=== PATIENT | male | born 1950 | race Caucasian/White ===

== ENCOUNTER 2023-03-06 12:31 | Inpatient (IN) | payer OTHER ==
--- NOTE | 2023-03-06 13:58 | RAD REPORT ---
EXAM DESCRIPTION: CT - Head Brain Wo Cont - 03/06/2023 1:50 pm CLINICAL HISTORY: Alteration of awareness/confusion COMPARISON: None TECHNIQUE: Computed axial tomography of the head was obtained. IV contrast was not requested. All CT scans are performed using dose optimization technique as appropriate and may include automated exposure control or mA/KV adjustment according to patient size. FINDINGS: An intracranial bleed is not seen The ventricles are normal in caliber No extra-axial fluid collection is noted. Mild cerebral atrophy Fluid within the sinuses/ mastoids is not seen. IMPRESSION: No acute intracranial abnormality is seen If patient's symptoms persist MRI of the brain would be recommended
--- NOTE | 2023-03-06 14:17 | RAD REPORT ---
EXAM DESCRIPTION: Ulysses Single View03/06/2023 2:00 pm CLINICAL HISTORY: Weakness, ataxia, hepatitis-C COMPARISON: none FINDINGS: The lungs appear clear of acute infiltrate. The heart is normal size IMPRESSION: No acute abnormalities displayed
--- NOTE | 2023-03-06 14:18 | RAD REPORT ---
EXAM DESCRIPTION: RAD - Hip Left 2 View - 03/06/2023 2:00 pm CLINICAL HISTORY: Left hip pain FINDINGS: A zipper overlies medial left pubic bone obscuring detail. No fracture or dislocation is seen. Mild osteoarthritis involves left hip. The bones appear osteoporo tic
[2023-03-06 15:03] LABS: Absolute Lymphocytes (CBC) 0.4 K/uL (0.7-4.9); Hematocrit 42.3 % (39.6-49.0); Lymphocytes % 4.9 % (15.3-44.8); MCV 92.5 fL (80-100); MPV 6.9 fL (7.6-11.3); Platelets 271 thou/uL (152-406); RBC Red Blood Cell Count 4.58 M/uL (4.33-5.43)
[2023-03-06 15:04] LABS: Protime INR 1.15
[2023-03-06 15:09] LABS: Specific Gravity 1.013 (1.005-1.030); Urine Bacteria None Seen /HPF (<20); Urine Bilirubin NEGATIVE (Negative); Urine Blood 1+ (Negative); Urine Clarity Clear (Clear); Urine Color Yellow (Yellow); Urine Glucose NEGATIVE (Negative); Urine Mucus Slight /HPF (None Seen); Urine Protein TRACE (Negative); Urine Urobilinogen 2+ (Normal)
[2023-03-06 15:19] LABS: Albumin 2.8 g/dL (3.4-5.0); Bilirubin Direct 0.2 mg/dL (0-0.2); Bilirubin Indirect, Calculated 0.3 mg/dL (0.2-0.8); Bilirubin Total 0.5 mg/dL (0.2-1.0); Potassium 4.9 mEq/L (3.5-5.1); Protein, Total 7.2 g/dL (6.4-8.2); Troponin High Sensitivity 6.9 pg/mL (<58.9)
--- NOTE | 2023-03-06 18:47 | EDPHYS ---
Physician Documentation [facility] Name: Emre Stack Age: 72 yrs Sex: Male : 1950 Arrival Date: 03/06/2023 Time: 12:31 Bed 18 Private MD: ED Physician Kehinde Salas HPI: 03/06 20:47 This 72 yrs old Male presents to ER via EMS with complaints of General Weakness. kdr 20:47 Patient become more more weak over the last few weeks. Has had some falls as well. kdr Patient is also been incontinent of stool and urine for the last 24 hours. Patient appears very cachectic and has had very poor nutrition over the last few weeks. According to the family this present, the patient was improving after the first encountered him about 3 weeks ago. He had a period of time when he was able to ambulate and maintain his strength. Subsequently he is slowly declined to where he is today. Family states are simply unable to take care of him at this time and that he continues to have incontinence of bowel and bladder. Patient himself has 0 complaint aside from being weak. Onset: The symptoms/episode began/occurred gradually, 3 week(s) ago. Severity of symptoms: At their worst the symptoms were mild moderate just prior to arrival, in the emergency department the symptoms are unchanged. The patient has not experienced similar symptoms in the past. The patient has not recently seen a physician. Historical: - Allergies: 12:39 No Known Allergies; eh3 - PMHx: 12:39 Hepatitis C; Psych diagnosis; eh3 - Immunization history:: Adult Immunizations up to date. - Social history:: Smoking status: Patient reports the use of cigarette tobacco products, smokes two packs cigarettes per day. has not smoked in last 5 days, Patient/guardian denies using alcohol. ROS: 20:47 Constitutional: Negative for fever, chills, and weight loss, Eyes: Negative for injury, kdr pain, redness, and discharge, ENT: Negative for injury, pain, and discharge, Neck: Negative for injury, pain, and swelling, Cardiovascular: Negative for chest pain, palpitations, and edema, Respiratory: Negative for shortness of breath, cough, wheezing, and pleuritic chest pain, Abdomen/GI: Negative for abdominal pain, nausea, vomiting, diarrhea, and constipation, Back: Negative for injury and pain, MS/Extremity: Negative for injury and deformity, Skin: Negative for injury, rash, and discoloration, Neuro: Negative for headache, weakness, numbness, tingling, and seizure activity. Psych: Negative for depression, anxiety, suicide ideation, homicidal ideation, and hallucinations, Allergy/Immunology: Negative for hives, rash, and allergies, Endocrine: Negative for neck swelling, polydipsia, polyuria, polyphagia, and marked weight changes, Hematologic/Lymphatic: Negative for swollen nodes, abnormal bleeding, and unusual bruising. 20:47 Abdomen/GI: Positive for bowel incontinence, Negative for abdominal pain, nausea and vomiting, nausea, vomiting, and diarrhea, nausea, vomiting. 20:47 : Positive for Incontinence of bladder and urine. Exam: 20:47 Constitutional: This is a well developed, who is awake, alert, and in no acute kdr distress. Patient appears to be very cachectic and poorly nourished Head/Face: Normocephalic, atraumatic. Eyes: Pupils equal round and reactive to light, extra-ocular motions intact. Lids and lashes normal. Conjunctiva and sclera are non-icteric and not injected. Cornea within normal limits. Periorbital areas with no swelling, redness, or edema. Neck: Trachea midline, no thyromegaly or masses palpated, and no cervical lymphadenopathy. Supple, full range of motion without nuchal rigidity, or vertebral point tenderness. No Meningismus. Chest/axilla: Normal chest wall appearance and motion. Nontender with no deformity. No lesions are appreciated. Cardiovascular: Regular rate and rhythm with a normal S1 and S2. No gallops, murmurs, or rubs. Normal PMI, no JVD. No pulse deficits. Respiratory: Lungs have equal breath sounds bilaterally, clear to auscultation and percussion. No rales, rhonchi or wheezes noted. No increased work of breathing, no retractions or nasal flaring. Abdomen/GI: Soft, non-tender, with normal bowel sounds. No distension or tympany. No guarding or rebound. No evidence of tenderness throughout. Back: No spinal tenderness. No costovertebral tenderness. Full range of motion. Skin: Warm, dry with normal turgor. Normal color with no rashes, no lesions, and no evidence of cellulitis. MS/ Extremity: Pulses equal, no cyanosis. Neurovascular intact. Full, normal range of motion. Neuro: Awake and alert, GCS 15, oriented to person, place, time, and situation. Cranial nerves II-XII grossly intact. Motor strength 5/5 in all extremities. Sensory grossly intact. Cerebellar exam normal. Normal gait. Psych: Awake, alert, with orientation to person, place and time. Behavior, mood, and affect are within normal limits. 20:47 Neuro: Orientation: is normal, Mentation: appropriate for stated age, Motor: moves all fours, strength is 4/5 in the right arm, left arm, right leg and left leg, Gait: unable to assess, not tested. needs assistance. Vital Signs: 12:37 BP 132 / 65; Pulse 94; Resp 18; Temp 95.8(O); Pulse Ox 96% on R/A; Weight 72.57 kg; eh3 Height 5 ft. 10 in. ; 13:30 BP 121 / 83; Pulse 89; Resp 22; Pulse Ox 95% on R/A; eh3 14:30 BP 113 / 67; Pulse 81; Resp 20; Pulse Ox 95% on R/A; eh3 15:30 BP 123 / 63; Pulse 94; Resp 25; Pulse Ox 96% on R/A; eh3 16:30 BP 125 / 64; Pulse 89; Resp 24; Pulse Ox 98% on R/A; eh3 17:30 BP 137 / 67; Pulse 97; Resp 22; Pulse Ox 97% on R/A; eh3 17:48 BP 133 / 98 Supine; Pulse 98; eh3 17:50 BP 117 / 63 Sitting; Pulse 104; eh3 17:52 BP 110 / 64 Standing; Pulse 99; eh3 18:30 BP 146 / 76; Pulse 102; Resp 21; Pulse Ox 98% on R/A; eh3 19:30 BP 149 / 76; Pulse 101; Resp 20; Pulse Ox 97% on R/A; eh3 20:30 BP 139 / 68; Pulse 94; Resp 18; Pulse Ox 98% on R/A; eh3 12:37 Body Mass Index 22.96 (72.57 kg, 177.8 cm) eh3 MDM: 18:47 Patient medically screened. kdr 19:25 Data reviewed: vital signs, nurses notes. ED course: I discussed the EKG and patient kdr findings with Dr. May. Based on the lack of symptoms and normal troponin, it was felt that the machine interpretation was not accurate. I currently have a repeat troponin and EKG pending. If findings indicate we will institute appropriate treatment at that time and notify Dr. May. 03/06 13:22 Order name: Basic Metabolic Panel; Complete Time: 16:17 kdr 03/06 13:22 Order name: CBC with Diff; Complete Time: 16:17 kdr 03/06 13:22 Order name: LFT's; Complete Time: 16:17 kdr 03/06 13:22 Order name: NT PRO-BNP; Complete Time: 16:17 kdr 03/06 13:22 Order name: PT-INR; Complete Time: 16:17 kdr 03/06 13:22 Order name: Troponin HS; Complete Time: 16:17 kdr 03/06 13:22 Order name: Urinalysis w/ reflexes; Complete Time: 16:17 kdr 03/06 16:20 Order name: Troponin High Sensitivity kdr 03/06 16:59 Order name: Isabel; Complete Time: 18:15 eh3 03/06 13:22 Order name: XRAY Chest (1 view); Complete Time: 14:40 kdr 03/06 13:22 Order name: CT Head Brain wo Cont; Complete Time: 14:40 kdr 03/06 13:22 Order name: Hip Left 2 View XRAY; Complete Time: 14:40 kdr 03/06 13:22 Order name: EKG; Complete Time: 13:23 kdr 03/06 13:22 Order name: Cardiac monitoring; Complete Time: 13:24 kdr 03/06 13:22 Order name: EKG - Nurse/Tech; Complete Time: 14:10 kdr 03/06 13:22 Order name: IV Saline Lock; Complete Time: 13:24 kdr 03/06 13:22 Order name: Labs collected and sent; Complete Time: 14:50 kdr 03/06 13:22 Order name: O2 Per Protocol; Complete Time: 13:24 kdr 03/06 13:22 Order name: O2 Sat Monitoring; Complete Time: 13:24 kdr 03/06 16:20 Order name: Misc. Order: Ambulate patient after fluid bolus; Complete Time: 17:59 kdr 03/06 16:20 Order name: Orthostatics; Complete Time: 17:59 kdr 03/06 19:14 Order name: EKG - Nurse/Tech kdr Administered Medications: 17:00 Drug: NS 0.9% IV 1000 ml Route: IV; Rate: 1 bolus; Site: left antecubital; 3 17:45 Follow up: IV Status: Completed infusion; IV Intake: 1000ml [facility] Disposition Summary: 03/06/23 18:47 Hospitalization Ordered Hospitalization Status: Inpatient Admission kdr Provider: Misbah Travis Location: Telemetry/MedSurg (Inpatient) kdr Condition: Fair kdr Problem: new kdr Symptoms: are unchanged kdr Bed/Room Type: Standard kdr Room Assignment: 404(03/06/23 19:40) cg Diagnosis - Weakness kdr - Adult failure to thrive kdr - Loss of bowel/bladder control kdr Forms: - Medication Reconciliation Form kdr - SBAR form kdr Signatures: Dispatcher [employer] Kehinde Maria MD MD kdr Ángela Hale RN RN Sharon Borges RN RN [facility] Corrections: (The following items were deleted from the chart) 19:40 18:47 kdr cg
--- NOTE | 2023-03-06 18:47 | ER ---
Nurse's Notes [facility] Name: Emre Stack Age: 72 yrs Sex: Male : 1950 Arrival Date: 03/06/2023 Time: 12:31 Bed 18 Private MD: Diagnosis: Weakness;Adult failure to thrive;Loss of bowel/bladder control Presentation: 03/06 12:37 Chief complaint: EMS states: family toned out to home for generalized weakness for past eh3 14 days, pt normally walks but has not been able to walk for past 4 days. Pt was hypertensive on EMS arrival but dropped to 95/55 in ambulance, EMS gave 350mL NS bolus en route, EMS reports tachycardia in 130s. Coronavirus screen: Vaccine status: Patient reports receiving the 2nd dose of the covid vaccine. Ebola Screen: No symptoms or risks identified at this time. Initial Sepsis Screen: Does the patient meet any 2 criteria? No. Patient's initial sepsis screen is negative. Does the patient have a suspected source of infection? No. Patient's initial sepsis screen is negative. Risk Assessment: Do you want to hurt yourself or someone else? Patient reports no desire to harm self or others. Onset of symptoms was March 06, 2023. 12:37 Method Of Arrival: EMS: [facility] eh3 12:37 Acuity: SUNITA 3 eh3 Triage Assessment: 12:39 General: Appears in no apparent distress. uncomfortable, Behavior is cooperative, eh3 appropriate for age, drowsy. Pain: Denies pain. Neuro: Level of Consciousness is awake, obeys commands, lethargic, Oriented to person, place, time, situation. Cardiovascular: Capillary refill < 3 seconds Patient's skin is warm and dry. Respiratory: Airway is patent Respiratory effort is even, labored, Respiratory pattern is regular, symmetrical. GI: Abdomen is round. Derm: Skin is pink, warm \T\ dry. Musculoskeletal: Circulation, motion, and sensation intact. Historical: - Allergies: 12:39 No Known Allergies; eh3 - PMHx: 12:39 Hepatitis C; Psych diagnosis; eh3 - Immunization history:: Adult Immunizations up to date. - Social history:: Smoking status: Patient reports the use of cigarette tobacco products, smokes two packs cigarettes per day. has not smoked in last 5 days, Patient/guardian denies using alcohol. Screenin:41 [facility] ED Fall Risk Assessment (Adult) Score/Fall Risk Level 0 - 2 = Low Risk. Abuse eh3 screen: Denies threats or abuse. Denies injuries from another. Nutritional screening: No deficits noted. Tuberculosis screening: No symptoms or risk factors identified. Assessment: 12:41 Reassessment: No changes from previously documented assessment. See triage assessment. eh3 13:30 Reassessment: Patient appears in no apparent distress at this time. Patient and/or eh3 family updated on plan of care and expected duration. Pain level reassessed. Patient is alert, oriented x 3, equal unlabored respirations, skin warm/dry/pink. 14:30 Reassessment: Patient appears in no apparent distress at this time. Patient and/or eh3 family updated on plan of care and expected duration. Pain level reassessed. Patient is alert, oriented x 3, equal unlabored respirations, skin warm/dry/pink. 15:30 Reassessment: Patient appears in no apparent distress at this time. Patient and/or eh3 family updated on plan of care and expected duration. Pain level reassessed. Patient is alert, oriented x 3, equal unlabored respirations, skin warm/dry/pink. 16:30 Reassessment: Patient appears in no apparent distress at this time. Patient and/or eh3 family updated on plan of care and expected duration. Pain level reassessed. Patient is alert, oriented x 3, equal unlabored respirations, skin warm/dry/pink. 17:30 Reassessment: Patient appears in no apparent distress at this time. Patient and/or eh3 family updated on plan of care and expected duration. Pain level reassessed. Patient is alert, oriented x 3, equal unlabored respirations, skin warm/dry/pink. 17:55 Reassessment: Pt states he is too dizzy/lightheaded to walk. Able to stand but wobbly eh3 when standing. 18:30 Reassessment: Patient appears in no apparent distress at this time. Patient and/or eh3 family updated on plan of care and expected duration. Pain level reassessed. Patient is alert, oriented x 3, equal unlabored respirations, skin warm/dry/pink. 19:30 Reassessment: Patient appears in no apparent distress at this time. Patient and/or eh3 family updated on plan of care and expected duration. Pain level reassessed. Patient is alert, oriented x 3, equal unlabored respirations, skin warm/dry/pink. 19:45 Reassessment: Failed attempt to call report to 4th floor, Pam placed ED nurse on eh3 hold. 20:05 Reassessment: Failed attempt to call report to 4th floor, Shabana states pt has not eh3 been assigned to a nurse yet and the nurse will call back when assigned. 20:30 Reassessment: Patient appears in no apparent distress at this time. Patient and/or eh3 family updated on plan of care and expected duration. Pain level reassessed. Patient is alert, oriented x 3, equal unlabored respirations, skin warm/dry/pink. Vital Signs: 12:37 BP 132 / 65; Pulse 94; Resp 18; Temp 95.8(O); Pulse Ox 96% on R/A; Weight 72.57 kg; eh3 Height 5 ft. 10 in. ; 13:30 BP 121 / 83; Pulse 89; Resp 22; Pulse Ox 95% on R/A; eh3 14:30 BP 113 / 67; Pulse 81; Resp 20; Pulse Ox 95% on R/A; eh3 15:30 BP 123 / 63; Pulse 94; Resp 25; Pulse Ox 96% on R/A; eh3 16:30 BP 125 / 64; Pulse 89; Resp 24; Pulse Ox 98% on R/A; eh3 17:30 BP 137 / 67; Pulse 97; Resp 22; Pulse Ox 97% on R/A; eh3 17:48 BP 133 / 98 Supine; Pulse 98; eh3 17:50 BP 117 / 63 Sitting; Pulse 104; eh3 17:52 BP 110 / 64 Standing; Pulse 99; eh3 18:30 BP 146 / 76; Pulse 102; Resp 21; Pulse Ox 98% on R/A; eh3 19:30 BP 149 / 76; Pulse 101; Resp 20; Pulse Ox 97% on R/A; eh3 20:30 BP 139 / 68; Pulse 94; Resp 18; Pulse Ox 98% on R/A; eh3 12:37 Body Mass Index 22.96 (72.57 kg, 177.8 cm) eh3 ED Course: 12:36 Patient arrived in ED. 3 12:39 Triage completed. eh3 12:39 Arm band placed on. eh3 12:41 Patient has correct armband on for positive identification. Bed in low position. Call eh3 light in reach. Side rails up X2. Provided Education on: Use of call [place]. Client placed on continuous cardiac and pulse oximetry monitoring. NIBP monitoring applied. 12:41 Maintain EMS IV. Dressing intact. Good blood return noted. Site clean \T\ dry. Gauge \T\ eh 3 site: 20g L hand. 12:46 Kehinde Salas MD is Attending Physician. kdr 13:24 Sharon Borges, RN is Primary Nurse. eh3 13:50 CT Head Brain wo Cont In Process Unspecified. EDMS 14:01 XRAY Chest (1 view) In Process Unspecified. EDMS 14:01 Hip Left 2 View XRAY In Process Unspecified. EDMS 14:10 EKG done, by ED staff. aw1 14:40 Inserted saline lock: 22 gauge in left antecubital area, using aseptic technique. Blood eh3 collected. 18:46 Misbah Travis MD is Hospitalizing Provider. kdr 18:58 called and spoke with Cari from the [place]/ notified them the patient requests to stay eb here/ ID Number is [id number]/ Cari will fax over papers to be added to the chart. 20:37 Patient admitted, IV remains in place. pf1 20:43 No provider procedures requiring assistance completed. eh3 Administered Medications: 17:00 Drug: NS 0.9% IV 1000 ml Route: IV; Rate: 1 bolus; Site: left antecubital; eh3 17:45 Follow up: IV Status: Completed infusion; IV Intake: 1000ml eh3 Medication: 20:43 VIS not applicable for this client. eh3 Intake: 17:45 IV: 1000ml; Total: 1000ml. eh3 Outcome: 18:47 Decision to Hospitalize by Provider. kdr 20:37 Admitted to Tele accompanied by tech, via stretcher, room 404, with chart, Report pf1 called to DWIGHT Farr 20:37 Condition: stable 20:37 Instructed on the need for admit, Demonstrated understanding of instructions. 20:43 Patient left the ED. eh3 Signatures: Dispatcher [employer] EDMS Kehinde Salas MD MD [facility] Anamika Smalls Sharon Borges, RN RN 3 Sirena Chance, RN RN pf1 Breanne Cruz aw1 Corrections: (The following items were deleted from the chart) 20: 19:45 Reassessment: Failed attempt to call report, Pam placed ED nurse on hold 3 3
--- NOTE | 2023-03-06 19:55 | P.HP ---
Certification for Inpatient Patient admitted to: Observation With expected LOS: <2 Midnights Patient will require the following post-hospital care: None Practitioner: I am a practitioner with admitting privileges, knowledge of patient current condition, hospital course, and medical plan of care. Services: Services provided to patient in accordance with Admission requirements found in Title 42 Section 412.3 of the Code of Federal Regulations Patient History Date of Service: 03/06/23 Reason for admission: Weakness, falls, debility History of Present Illness: 72-year-old male with history of hepatitis C, BPD presents emergency department with chief complaint of general weakness, he has been doing poorly at home where he lives by himself, unable to go to bed for the last 4 days, he was found incontinent of stool/urine and unable to move or clean himself he was initially hypotensive and tachycardic with initial blood pressure of 95/55 and a heart rate of 130 per EMS. He reports decline over the course of the last month or so especially worse over the course of the last 1 week. He is unable to stand or walk without assistance. He feels very dizzy/lightheaded when he stands up and also has some pain in the left lower extremity from recent fall. ED provider wishes to admit under observation for dehydration, general weakness, debility. - Past Medical/Surgical History -: Hepatitis C -: BPD Past Surgical History: Unable to obtain Psychosocial/ Personal History: Patient lives at home, alone. - Family History Family History: Reviewed- Non-Contributory - Social History Smoking Status: Current every day smoker Counseled patient to stop smoking for: less than 10 minutes Smoking therapy provided: No Alcohol use: No CD- Drugs: No Caffeine use: Yes Review of Systems 10-point ROS is otherwise unremarkable General: Weakness, Malaise Musculoskeletal: Other (Left hip pain) Physical Examination - Physical Exam General: Alert, In no apparent distress, Oriented x3 HEENT: Atraumatic, PERRLA, Mucous membr. moist/pink, EOMI, Sclerae nonicteric Neck: Supple, 2+ carotid pulse no bruit, No LAD, Without JVD or thyroid abnormality Respiratory: Clear to auscultation bilaterally, Normal air movement Cardiovascular: Regular rate/rhythm, Normal S1 S2 Capillary refill: <2 Seconds Gastrointestinal: Normal bowel sounds, No tenderness Musculoskeletal: No tenderness Integumentary: No rashes Neurological: Normal speech, Normal tone, Normal affect, Abnormal gait (Unsteady gait), Abnormal strength - Studies Laboratory Data (last 24 hrs) 03/06/23 03/06/23 03/06/23 14:44 14:44 14:44 WBC 8.10 Hgb 14.0 Hct 42.3 Plt Count 271 PT 12.7 H INR 1.15 Sodium 137 Potassium 4.9 BUN 16 Creatinine 0.93 Glucose 106 Total Bilirubin 0.5 AST 97 H ALT 111 H Alkaline Phosphatase 131 H Assessment and Plan - Plan Assessment: Dehydration, weakness, debility Bipolar disorder Hepatitis C Plan: Dehydration, weakness, debility Patient is at home by himself, he has been unable to get a bed for the past few days and incontinent of stool/urine. Unable to stand or walk without assistance secondary to weakness, left hip pain after recent fall. Continue IV fluids, PT, social sciences professor consult. Patient/family requesting assistance with home health/physical therapy. Obtain orthostatic vital signs, continue IV fluids. CT head without acute findings. Bipolar disorder Home medications continued. Hepatitis C DVT PPX: Lovenox Code status: Full Discharge Plan: Home Plan to discharge in: 24 Hours - Advance Directives Does patient have a Living Will: No Does patient have a Durable POA for Healthcare: No - Code Status/Comfort Care Code Status Assessed: Yes (Full code) Critical Care: No Time Spent Managing Pts Care (In Minutes): 55
[2023-03-06] MEDS ORDERED: ONDANSETRON 4 MG/2 ML VIAL IV PRN (21:45)
[2023-03-06] MEDS ORDERED: LITHIUM CARBONATE 300 MG CAP PO SCH (21:45)
[2023-03-06] MEDS: BUSPIRONE HCL 5 MG TABLET PO SCH (22:05)
[2023-03-06] MEDS: NA CHLORIDE 0.9% 1,000 ML IV SCH (22:05)
[2023-03-06] MEDS: TRAZODONE 50 MG TABLET PO PRN (22:05)
[2023-03-06] MEDS: RISPERIDONE 1 MG TABLET PO SCH (22:05)
[2023-03-06 22:52] VITALS: BMI 22.9
[2023-03-07 02:56] LABS: Absolute Lymphocytes (CBC) 0.9 K/uL (0.7-4.9); Hematocrit 36.8 % (39.6-49.0); Lymphocytes % 9.9 % (15.3-44.8); MCV 92.7 fL (80-100); MPV 7.3 fL (7.6-11.3); Platelets 239 thou/uL (152-406); RBC Red Blood Cell Count 3.97 M/uL (4.33-5.43)
[2023-03-07 03:23] LABS: Magnesium 2.4 mg/dL (1.6-2.4); Potassium 4.5 mEq/L (3.5-5.1); Thyroid Stimulating Hormone 0.885 uIU/mL (0.358-3.740)
[2023-03-07] MEDS: NA CHLORIDE 0.9% 1,000 ML IV SCH ×2 (09:06→19:17)
[2023-03-07] MEDS: RISPERIDONE 1 MG TABLET PO SCH ×2 (09:56→20:34)
[2023-03-07] MEDS: ENOXAPARIN 40 MG/0.4 ML SQ SCH (09:57)
[2023-03-07] MEDS: LITHIUM CARBONATE 300 MG CAP PO SCH ×3 (09:57→20:34)
[2023-03-07] MEDS: BUSPIRONE HCL 5 MG TABLET PO SCH ×3 (09:57→20:35)
[2023-03-07] MEDS: ESCITALOPRAM 20 MG TAB PO SCH (09:57)
--- NOTE | 2023-03-07 12:19 | P.PN ---
Subjective Date of Service: 03/07/23 Chief Complaint: Weakness, falls, debility Subjective: No new changes (Weak confused disoriented) Review of Systems is unable to be obtained Physical Examination - Vital Signs Temperature: 98.5 F Blood Pressure: 111/58 Pulse: 70 Respirations: 20 Pulse Ox (%): 95 - Physical Exam General: Alert, Cooperative Neck: Supple Respiratory: Clear to auscultation bilaterally Cardiovascular: No edema, Regular rate/rhythm, Normal S1 S2 Gastrointestinal: Normal bowel sounds, Soft and benign - Studies Laboratory Data (last 24 hrs) 03/06/23 03/06/23 03/06/23 14:44 14:44 14:44 WBC 8.10 Hgb 14.0 Hct 42.3 Plt Count 271 PT 12.7 H INR 1.15 Sodium 137 Potassium 4.9 BUN 16 Creatinine 0.93 Glucose 106 Total Bilirubin 0.5 AST 97 H ALT 111 H Alkaline Phosphatase 131 H Assessment And Plan - Current Problems (Diagnosis) (1) Altered mental state Current Visit: Yes Status: Acute Plan: AW AMS. Not sure etiology, Abnormal LFT, NEg CXYR, Osteoarthritis of R hip, NEg CT of head/ Ne of sepsis. Add thiamine Qualifiers: Altered mental status type: delirium Qualified Code(s): R41.0 - Disorientation, unspecified
[2023-03-07] MEDS: THIAMINE HCL 100 MG TABLET PO SCH ×2 (12:30→20:35)
[2023-03-07] MEDS: TRAZODONE 50 MG TABLET PO PRN (20:35)
[2023-03-08 03:50] LABS: Absolute Lymphocytes (CBC) 0.9 K/uL (0.7-4.9); Hematocrit 35.3 % (39.6-49.0); MCV 92.1 fL (80-100); MPV 7.1 fL (7.6-11.3); Platelets 249 thou/uL (152-406); RBC Red Blood Cell Count 3.83 M/uL (4.33-5.43)
[2023-03-08 04:09] LABS: Albumin 2.2 g/dL (3.4-5.0); Bilirubin Total 0.4 mg/dL (0.2-1.0); Potassium 4.2 mEq/L (3.5-5.1); Protein, Total 5.8 g/dL (6.4-8.2)
[2023-03-08] MEDS: NA CHLORIDE 0.9% 1,000 ML IV SCH ×3 (04:09→23:45)
[2023-03-08] MEDS: ENOXAPARIN 40 MG/0.4 ML SQ SCH (09:19)
[2023-03-08] MEDS: LITHIUM CARBONATE 300 MG CAP PO SCH ×3 (09:20→20:27)
[2023-03-08] MEDS: BUSPIRONE HCL 5 MG TABLET PO SCH ×3 (09:20→20:26)
[2023-03-08] MEDS: ESCITALOPRAM 20 MG TAB PO SCH (09:20)
[2023-03-08] MEDS: THIAMINE HCL 100 MG TABLET PO SCH ×2 (09:20→20:27)
[2023-03-08] MEDS: RISPERIDONE 1 MG TABLET PO SCH ×2 (09:26→20:26)
--- NOTE | 2023-03-08 09:38 | P.DS ---
Admission Date: 03/07/23 Discharge Date: 03/08/23 Disposition: ROUTINE DISCHARGE Discharge Condition: GOOD Reason for Admission: Weakness, falls, debility - Problems (1) Altered mental state Current Visit: Yes Status: Acute Qualifiers: Altered mental status type: delirium Qualified Code(s): R41.0 - Disorientation, unspecified Brief History of Present Illness: Patient is 72 years of age admitted with altered mental status he is apparently living with his brother he has had this recurrent episodes where he becomes weak and able to ambulate Hospital Course: Patient was admitted and he did well during the course of his stay his labs were unremarkable cultures all negative patient is mildly anemic at the time of discharge he was alert oriented responsive cooperative is only oriented x1 brother at the bedside he lives with his brother. According to the brother he has his episodes of weakness and disorientation apparently he is not taking his medications correctly he takes them all in one go in the evening of advised him to follow the instructions and take the medications as prescribed and [facility] for him to have [facility] health Vital Signs/Physical Exam: Temp Pulse Resp BP Pulse Ox 98.0 F 54 16 98/54 L 98 03/08/23 04:00 03/08/23 04:00 03/08/23 04:00 03/08/23 04:00 03/08/23 04:00 Laboratory Data at Discharge: WBC 7.20 thou/uL (4.3-10.9) 03/08/23 03:17 Hgb 11.7 g/dL (13.6-17.9) L 03/08/23 03:17 Hct 35.3 % (39.6-49.0) L 03/08/23 03:17 Plt Count 249 thou/uL (152-406) 03/08/23 03:17 PT 12.7 SECONDS (9.5-12.5) H 03/06/23 14:44 INR 1.15 03/06/23 14:44 Sodium 136 mEq/L (136-145) 03/08/23 03:17 Potassium 4.2 mEq/L (3.5-5.1) 03/08/23 03:17 BUN 11 mg/dL (7-18) 03/08/23 03:17 Creatinine 0.69 mg/dL (0.70-1.30) L 03/08/23 03:17 Glucose 108 mg/dL (74-106) H 03/08/23 03:17 Magnesium 2.0 mg/dL (1.6-2.4) 03/08/23 03:17 Total Bilirubin 0.4 mg/dL (0.2-1.0) 03/08/23 03:17 AST 58 U/L (15-37) H 03/08/23 03:17 ALT 104 U/L (16-61) H 03/08/23 03:17 Alkaline Phosphatase 107 U/L (45-117) 03/08/23 03:17 Physician Discharge Instructions: Patient to be discharged after seen by web content & social media manager and the web content & social media manager to arrange for home health services No active medication list listed however his medication list has been reviewed patient to take medications as prescribed Diet: Regular Activity: Ad rita Followup: ZARA ZUÑIGA [Primary Care Provider] -
[2023-03-08] MEDS: ACETAMINOPHEN 500 MG TAB PO PRN (20:27)
[2023-03-08] MEDS: TRAZODONE 50 MG TABLET PO PRN (20:28)
[2023-03-09] MEDS: ACETAMINOPHEN 500 MG TAB PO PRN ×3 (03:19→14:54)
[2023-03-09] MEDS: NA CHLORIDE 0.9% 1,000 ML IV SCH (03:19)
[2023-03-09 03:45] LABS: Absolute Lymphocytes (CBC) 1.4 K/uL (0.7-4.9); Hematocrit 39.7 % (39.6-49.0); Lymphocytes % 24.7 % (15.3-44.8); MCV 92.6 fL (80-100); MPV 7.1 fL (7.6-11.3); Platelets 274 thou/uL (152-406); RBC Red Blood Cell Count 4.29 M/uL (4.33-5.43)
[2023-03-09 03:51] LABS: Albumin 2.4 g/dL (3.4-5.0); Bilirubin Total 0.4 mg/dL (0.2-1.0); Magnesium 2.3 mg/dL (1.6-2.4); Potassium 4.4 mEq/L (3.5-5.1); Protein, Total 6.2 g/dL (6.4-8.2)
[2023-03-09] MEDS: LITHIUM CARBONATE 300 MG CAP PO SCH ×2 (09:18→14:46)
[2023-03-09] MEDS: BUSPIRONE HCL 5 MG TABLET PO SCH ×2 (09:19→14:46)
[2023-03-09] MEDS: THIAMINE HCL 100 MG TABLET PO SCH (09:19)
[2023-03-09] MEDS: ENOXAPARIN 40 MG/0.4 ML SQ SCH (09:19)
[2023-03-09] MEDS: ESCITALOPRAM 20 MG TAB PO SCH (09:19)
[2023-03-09] MEDS: RISPERIDONE 1 MG TABLET PO SCH (09:19)
--- NOTE | 2023-03-09 12:31 | P.DS ---
Admission Date: 03/07/23 Discharge Date: 03/09/23 Disposition: DC HOME/HOME HEALTH CARE Discharge Condition: GOOD Reason for Admission: Weakness, falls, debility Brief History of Present Illness: 72 yo M, PMH: hepatitis C, BPD Patient presents emergency department with chief complaint of general weakness, he has been doing poorly at home where he lives by himself, unable to go to bed for the last 4 days, he was found incontinent of stool/urine and unable to move or clean himself he was initially hypotensive and tachycardic with initial blood pressure of 95/55 and a heart rate of 130 per EMS. He reports decline over the course of the last month or so especially worse over the course of the last 1 week. He is unable to stand or walk without assistance. He feels very dizzy/lightheaded when he stands up and also has some pain in the left lower extremity from recent fall. ED provider wishes to admit under observation for dehydration, general weakness, debility. Hospital Course: Problem list: Dehydration, weakness, debility Bipolar disorder Hepatitis C Patient presented with general weakness, altered mental status, debility. CT head, Chest xray were negative for any acute findings. Labwork was unremarkable. Orthostatic vitals were negative. Hip xray noted mild osteoarthritis of left hip otherwise unremarkable. Dr Travis had discussion with patients brother who reported that patient has had episodes of weakness and disorientation in the past, and he has not taking his medications as prescribed - reportedly he takes them all in one go in the evening. Dr Travis discussed with patient importance of taking his home medications as prescribed. Patients symptoms improved with IV fluids and resumption of his home medications. His symptoms seem to be due to a combination of dehydration / over medication. Patient was feeling better and deemed stable for discharge home with home health. Continue home medications as previously prescribed. no change in medications Follow up: [facility] Physical Exam: GEN: Alert, oriented, NAD HEENT: Normal conjunctiva, sclera anicteric CV: Regular rate and rhythm, no edema Pulm: Nonlabored respirations on room air ABD: Soft, nontender, nondistended MSK: No joint tenderness Integumentary: No rashes Neuro: Normal speech, normal affect Vital Signs/Physical Exam: Temp Pulse Resp BP Pulse Ox 97.1 F 58 18 119/68 97 03/09/23 04:00 03/09/23 04:00 03/09/23 04:00 03/09/23 04:00 03/09/23 04:00 Laboratory Data at Discharge: WBC 5.50 thou/uL (4.3-10.9) 03/09/23 03:27 Hgb 13.1 g/dL (13.6-17.9) L D 03/09/23 03:27 Hct 39.7 % (39.6-49.0) 03/09/23 03:27 Plt Count 274 thou/uL (152-406) 03/09/23 03:27 PT 12.7 SECONDS (9.5-12.5) H 03/06/23 14:44 INR 1.15 03/06/23 14:44 Sodium Cancelled 03/09/23 06:00 Potassium Cancelled 03/09/23 06:00 BUN Cancelled 03/09/23 06:00 Creatinine Cancelled 03/09/23 06:00 Glucose Cancelled 03/09/23 06:00 Magnesium 2.3 mg/dL (1.6-2.4) 03/09/23 03:27 Total Bilirubin Cancelled 03/09/23 06:00 AST Cancelled 03/09/23 06:00 ALT Cancelled 03/09/23 06:00 Alkaline Phosphatase Cancelled 03/09/23 06:00 Home Medications: Buspirone HCl [Buspar] 1 tab PO TID 03/08/23 Escitalopram [Lexapro*] 1 tab PO DAILY 03/08/23 [place] Carbonate [Lithotabs *] 1 tab PO TID 03/08/23 Risperidone 1 tab PO BID 03/08/23 Thiamine HCl 200 mg PO BID 03/08/23 Trazodone [Desyrel*] 1 tab PO BEDTIME 03/08/23 Physician Discharge Instructions: Patient presented with general weakness, altered mental status, debility. CT head, Chest xray were negative for any acute findings. Labwork was unremarkable. Orthostatic vitals were negative. Hip xray noted mild osteoarthritis of left hip otherwise unremarkable. Dr Travis had discussion with patients brother who reported that patient has had episodes of weakness and disorientation in the past, and he has not taking his medications as prescribed - reportedly he takes them all in one go in the evening. Dr Travis discussed with patient importance of taking his home medications as prescribed. Patients symptoms improved with IV fluids and resumption of his home medications. His symptoms seem to be due to a combination of dehydration / over medication. Patient was feeling better and deemed stable for discharge home with home health. Continue home medications as previously prescribed. no change in medications Follow up: [facility] Diet: Regular Activity: Ad rita Followup: [email or web address] [Primary Care Provider] - Time spent managing pt's care (in minutes): 45
[2023-03-09 13:05] VITALS: O2SAT 94
--- NOTE | 2023-03-09 13:10 | EKG ---
Test Date: 2023-03-06 Test Time: 14:06:01 Ironworker: JO MEASUREMENT RESULTS: Intervals: Rate: 77 IL: 136 QRSD: 116 QT: 392 QTc: 443 [place]: P: 70 [place]: 136 QRS: 77 T: 66 INTERPRETIVE STATEMENTS: Sinus rhythm with premature atrial complexes Incomplete right bundle branch block Abnormal ECG No previous ECG available for comparison Electronically Signed On 03-09-23 13:07:11 CDT by Elvin May
[2023-03-09 17:39] VITALS: BP 102/65; TEMP 97.8
== END 2023-03-09 17:20 | disposition home health service (06) | DRG 948 ==
LOC: ER 12:31 → ERHOLD 19:31 → 4TH 19:46 → OBSVTOIN 03-07 12:20
PROVIDERS: ADMIT Internal Medicine Sleep Medicine; ATTEND Hospitalist
DX: R41.0 Disorientation, unspecified (principal); E86.0 Dehydration; D64.9 Anemia, unspecified; F31.9 Bipolar disorder, unspecified; B19.20 Unspecified viral hepatitis C without hepatic coma; F17.210 Nicotine dependence, cigarettes, uncomplicated; R62.7 Adult failure to thrive; Z60.2 Problems related to living alone; Z68.22 Body mass index [BMI] 22.0-22.9, adult; Z91.148 Patient's other noncompliance with medication regimen for other reason
CPT/HCPCS: 36415; 70450; 71045; 80048; 80053; 80076; 80178; 81001; 82140; 83735; 83880; 84439; 84443; 84484; 85025; 85610; 93005; 96360; 97110; 97116; 97161; 99285; J1650; J7030

== ENCOUNTER 2024-11-19 08:34 | Emergency (ER) | payer OTHER ==
[2024-11-19] MEDS ORDERED: NA CHLORIDE 0.9% 1,000 ML ONE (08:55)
[2024-11-19 09:20] LABS: Absolute Basophils 0.1 K/uL (0-0.5); Absolute Eosinophils 0.2 K/uL (0-0.5); Absolute Lymphocytes (CBC) 1.1 K/uL (0.7-4.9); Absolute Monocytes 0.4 K/uL (0.1-1.3); Absolute Neutrophil 5.3 K/uL (1.8-8.0); Basophils % 0.8 % (0-1.3); Eosinophils % 3.1 % (0-4.4); Hemoglobin 13.6 g/dL (13.6-17.9); MCH 30.8 pg (27.0-35.0); MCHC 34.1 g/dL (32.0-36.0); MCV 90.4 fL (80-100); MPV 7.2 fL (7.6-11.3); Monocytes % 5.8 % (3.3-12.3); Neutrophils % 74.3 % (41.7-73.7); Nucleated Red Blood Cells % 0.2 % (0-0); Platelets 182 thou/uL (152-406); RBC Red Blood Cell Count 4.42 M/uL (4.33-5.43); Red Cell Distribution Width 13.6 % (12.1-15.2)
--- NOTE | 2024-11-19 09:22 | RAD REPORT ---
EXAM: Chest Single View HISTORY: 74 years Male COUGH COMPARISON: 03/06/2023 FINDINGS: LUNGS/PLEURA: The lungs are clear. No pleural effusions or pneumothorax. No pulmonary edema. CARDIAC/MEDIASTINUM: The cardiac silhouette is within normal limits. UPPER ABDOMEN: No significant abnormality. BONES: No acute abnormality. LINES/TUBES/OTHER: Battery pack overlies the right lower chest. IMPRESSION: No evidence of acute cardiopulmonary disease. No significant change from prior.
--- NOTE | 2024-11-19 09:34 | RAD REPORT ---
EXAMINATION: Head C Spine Mpr Wo Con CLINICAL INDICATION: Male, 74 years old. FALLS TECHNIQUE: Axial CT images from the skull base to the vertex without intravenous contrast. Axial CT i mages through the cervical spine were obtained without intravenous contrast. Sagittal and coronal reformatted images were created from the data set. Coronal and sagittal reformatted images were creat ed from the data set. One or more of the following dose reduction techniques were used: Automated exposure control, adjustment of the mA and/or kV according to patient size, and/or iterative reconstr uction. Unless otherwise specified, incidental findings do not require dedicated imaging follow-up. [id number]. COMPARISON: 03/06/2023 FINDINGS: Head: INTRACRANIAL: No acute intracranial hemorrhage. No hydrocephalus. No mass effect or midline shift. No significant white matter disease.Moderate cerebral atrophy. VASCULATURE: No visualized abnormalities in the arteries or dural venous sinuses. SCALP/SKULL: No calvarial fracture identified. No acute soft tissue abnormality. SINUSES: Air-fluid level right maxillary sinus. No significant mastoid fluid. Cervical spine: ALIGNMENT: The cervical spine has normal alignment without scoliosis or spondylolisthesis. BONE: Vertebral body heights are maintained. No aggressive osseous lesions. DEGENERATIVE: Multilevel cervical spondylosis with evidence of bilateral neural foraminal narrowing. No high grade central spinal stenosis. Neural foraminal narrowing is present on the left at C5-6 and C6-7 that is mild to moderate and on the right at C4-5 and C6-7, also moderate. SOFT TISSUE: No significant abnormalities in the soft tissue of the neck. The visualized lung apices are clear. Carotid artery calcifications IMPRESSION: No acute intracranial abnormality. No acute fracture or traumatic malalignment of the cervical spine.
[2024-11-19 09:35] LABS: PT Prothrombin Time 12.9 SECONDS (10-13.0); Protime INR 1.14
--- NOTE | 2024-11-19 09:40 | RAD REPORT ---
EXAM: Chest Abd Pelvis Wo Con CLINICAL INDICATION: Male, 74 years old TRAUMA TECHNIQUE: CT chest, abdomen and pelvis was performed, without IV contrast, as per department protoco l. Axial, sagittal and coronal reconstructions were obtained. One or more of the following dose reduction techniques were used: Automated exposure control, adjustment of the mA and/or kV according to the patient size, and/or iterative reconstruction. Unless otherwise specified, incidental findings do not require dedicated imaging follow-up. [id number]. COMPARISON: No prior exam. FINDINGS: The lack of intravenous contrast limits the sensitivity of this exam for evaluation of solid visceral organs, vascular structures, and retroperitoneum. ---THORAX--- LOWER NECK AND CHEST WALL: Visualized thyroid gland and soft tissues are normal. LUNGS AND AIRWAYS: Airways are clear. No evidence of airspace or interstitial process.A few tiny sub- 4 mm nodules are seen bilaterally. None are suspicious and require follow-up. PLEURA: No pleural effusion. No pneumothorax. MEDIASTINUM AND LYMPH NODES: No mediastinal mass or fluid collection. Normal size mediastinal, hilar, and axillary lymph nodes. THORACIC AORTA: No thoracic aortic aneurysm. Atherosclerotic changes are present. PULMONARY ARTERIES: Caliber is within normal limits. Unable to evaluate for pulmonary emboli due to e ither protocol or lack of contrast. HEART: Mild cardiomegaly. Moderate coronary artery calcifications.No significant pericardial effusion . Aortic valve and mitral annular calcifications. ---ABDOMEN/PELVIS--- UPPER GI: No significant abnormality. LIVER: Cirrhotic liver morphology. No focal masses. GALLBLADDER/BILE DUCTS: No biliary ductal dilatation.? PANCREAS: No mass, ductal dilation, or rosalba-pancreatic fluid. SPLEEN: Mild splenomegaly. ADRENALS: Bilateral adrenal lesions with Hounsfield units less than 0 consistent with adenomas. KIDNEYS AND URETERS: No hydronephrosis.Right upper pole renal lesion which is likely a cyst.No renal calculi.No stones ABDOMINAL AORTA AND OTHER VESSELS: Moderate atherosclerotic changes without aortic aneurysm. PERITONEUM: No abnormal free fluid. No free air. LYMPH NODES: No pathologic lymphadenopathy. ABDOMINAL WALL: Small fat containing umbilical hernia. SMALL BOWEL/COLON: Small bowel has normal course and caliber. No colonic wall thickening or pericolon ic inflammatory changes.Normal appendix. Mild diverticulosis without diverticulitis. Mild formed colonic stool burden. URINARY BLADDER: Tiny left anterior bladder diverticulum. REPRODUCTIVE ORGANS: No pathologic process. ---COMBINED--- MUSCULOSKELETAL: Multilevel degenerative changes in the spine. No acute fracture. ADDITIONAL FINDINGS: None. IMPRESSION: No evidence of significant trauma to the chest, abdomen, or pelvis. Incidental findings as noted above,
[2024-11-19 09:41] LABS: Albumin 3.2 g/dL (3.4-5.0); Bilirubin Direct 0.2 mg/dL (0-0.2); Bilirubin Indirect, Calculated 0.4 mg/dL (0.2-0.8); Bilirubin Total 0.6 mg/dL (0.2-1.0); Globulin 3.3 g/dL (2.3-3.5); Magnesium 2.1 mg/dL (1.6-2.4); Protein, Total 6.5 g/dL (6.4-8.2); Troponin High Sensitivity 6.2 pg/mL (<58.9)
--- NOTE | 2024-11-19 10:16 | RAD REPORT ---
EXAMINATION: US LOWER EXTREMITY VENOUS DOPPLER BILATERAL CLINICAL INDICATION: Male, 74 years old.Pain;Swelling TECHNIQUE: Complete bilateral duplex sonography of the lower extremity veins was performed. The exami nation included compression for vein patency, color Doppler imaging and flow augmentation in response to distal compression of the distal external iliac, common femoral, femoral, popliteal, isai shannan, tibial and great saphenous veins. [id number]. COMPARISON: No prior exams FINDINGS: Duplex sonography imaging demonstrates all deep examined to be fully compressible with spontaneous, p hasic and augmented flow bilaterally. IMPRESSION: No evidence of deep venous thrombosis seen in either lower extremity.
--- NOTE | 2024-11-19 10:30 | EDPHYS ---
Physician Documentation [facility] Name: Emre Stack Age: 74 yrs Sex: Male : 1950 Arrival Date: 11/19/2024 Time: 08:34 Bed 19 Private MD: ED Physician Charan Coombs HPI: 11/19 09:22 This 74 yrs old Male presents to ER via EMS with complaints of Multiple Falls.daria 09:22 dizzy weak , falls. Details of fall: The patient fell from an upright position, while daria walking. Onset: The symptoms/episode began/occurred just prior to arrival. Associated injuries: The patient sustained no obvious injury. Onset: The symptoms/episode began/occurred this morning. Severity of symptoms: At their worst the symptoms were mild, in the emergency department the symptoms have improved, mildly. The patient has experienced similar episodes in the past, several times. Historical: - Allergies: 08:55 No Known Allergies; hb - Home Meds: 08:56 buspirone 15 mg Oral tablet 3 times per day [Active]; escitalopram oxalate 20 mg oral hb tablet daily [Active]; lithium carbonate 300 mg Oral tablet 2 times per day [Active]; Risperdal 4 mg Oral tablet 2 times per day [Active]; trazodone 50 mg Oral tablet every day at bedtime [Active]; trihexyphenidyl 2 mg Oral tablet 3 times per day [Active]; Vitamin B-1 100 mg oral tablet daily [Active]; - PMHx: 08:55 Hepatitis C; hb 08:56 Schizoaffective Disorder; Alcohol Abuse; hb - Immunization history:: Adult Immunizations up to date. - Infectious Disease History:: Denies. - Social history:: Smoking status: . - Family history:: not pertinent. ROS: 09:22 Constitutional: Negative for fever, chills, and weight loss, Eyes: Negative for injury, daria pain, redness, and discharge, ENT: Negative for injury, pain, and discharge, Neck: Negative for injury, pain, and swelling, Cardiovascular: Negative for chest pain, palpitations, and edema, Respiratory: Negative for shortness of breath, cough, wheezing, and pleuritic chest pain, Abdomen/GI: Negative for abdominal pain, nausea, vomiting, diarrhea, and constipation, Back: Negative for injury and pain, : Negative for injury, bleeding, discharge, and swelling, MS/Extremity: Negative for injury and deformity, Skin: Negative for injury, rash, and discoloration, Psych: Negative for depression, anxiety, suicide ideation, homicidal ideation, and hallucinations, Allergy/Immunology: Negative for hives, rash, and allergies, Endocrine: Negative for neck swelling, polydipsia, polyuria, polyphagia, and marked weight changes, Hematologic/Lymphatic: Negative for swollen nodes, abnormal bleeding, and unusual bruising, Neuro: Positive for dizziness, weakness, Exam: Constitutional: This is a well developed, well nourished patient who is awake, alert, daria and in no acute distress. Head/Face: Normocephalic, atraumatic. Eyes: Pupils equal round and reactive to light, extra-ocular motions intact. Lids and lashes normal. Conjunctiva and sclera are non-icteric and not injected. Cornea within normal limits. Periorbital areas with no swelling, redness, or edema. ENT: Nares patent. No nasal discharge, no septal abnormalities noted. Tympanic membranes are normal and external auditory canals are clear. Oropharynx with no redness, swelling, or masses, exudates, or evidence of obstruction, uvula midline. Mucous membranes moist. Neck: Trachea midline, no thyromegaly or masses palpated, and no cervical lymphadenopathy. Supple, full range of motion without nuchal rigidity, or vertebral point tenderness. No Meningismus. Chest/axilla: Normal chest wall appearance and motion. Nontender with no deformity. No lesions are appreciated. Cardiovascular: Regular rate and rhythm with a normal S1 and S2. No gallops, murmurs, or rubs. Normal PMI, no JVD. No pulse deficits. Respiratory: Lungs have equal breath sounds bilaterally, clear to auscultation and percussion. No rales, rhonchi or wheezes noted. No increased work of breathing, no retractions or nasal flaring. Abdomen/GI: Soft, non-tender, with normal bowel sounds. No distension or tympany. No guarding or rebound. No evidence of tenderness throughout. Back: No spinal tenderness. No costovertebral tenderness. Full range of motion. Male : Normal genitalia with no discharge or lesions. Skin: Warm, dry with normal turgor. Normal color with no rashes, no lesions, and no evidence of cellulitis. Neuro: Awake and alert, GCS 15, oriented to person, place, time, and situation. Cranial nerves II-XII grossly intact. Motor strength 5/5 in all extremities. Sensory grossly intact. Cerebellar exam normal. Normal gait. Psych: Awake, alert, with orientation to person, place and time. Behavior, mood, and affect are within normal limits. 09:22 Musculoskeletal/extremity: ROM: no acute changes, Circulation is intact in all extremities. Pulses: Sensation intact. Compartment Syndrome exam of affected extremity: is normal. Weight bearing: able to fully bear weight, without difficulty, DVT Exam: no pain, no tenderness, negative Homans' sign noted on exam, no appreciated bluish discoloration, no increased warmth, swelling, erythema, 09:43 ECG was reviewed by the Attending Physician. [facility] Vital Signs: 08:52 BP 128 / 75; Pulse 76; Resp 16; Temp 98.2(O); Pulse Ox 95% on R/A; Pain 1/10; hb 10:20 BP 139 / 75; Pulse 58; Resp 18; Pulse Ox 97% on R/A; ld1 08:52 Pain Scale: Adult hb MDM: 08:45 Medical Screening Exam initiated daria 08:45 Medical Screening Exam initiated daria 09:28 Differential Diagnosis altered mental status, sepsis, flu. Differential diagnosis: daria abrasion, closed head injury, contusion, fracture, laceration, multiple trauma, sprain, strain. Data reviewed: vital signs, nurses notes, lab test result(s), EKG, radiologic studies, plain films. Consideration of Admission/Observation Escalation of care including admission/observation considered. I considered the following discharge prescriptions or medication management in the emergency department Medications were administered in the Emergency Department. See MAR. Independent interpretation of the following test(s) in the Emergency Department EKG: See my EKG interpretation above. Test considered but Not performed: MRI: no mri brain. 11/19 08:47 Order name: Basic Metabolic Panel; Complete Time: 09:44 [facility] 11/19 08:47 Order name: CBC with Diff; Complete Time: 09:44 [facility] 11/19 08:47 Order name: LFT's; Complete Time: 09:44 [facility] 11/19 08:47 Order name: Magnesium; Complete Time: 09:44 [facility] 11/19 08:47 Order name: NT PRO-BNP; Complete Time: 09:44 [facility] 11/19 08:47 Order name: PT-INR; Complete Time: 09:44 [facility] 11/19 08:47 Order name: Troponin HS; Complete Time: 09:44 [facility] 11/19 08:59 Order name: [place]; Complete Time: 10:29 [facility] 11/19 08:47 Order name: XRAY Chest (1 view); Complete Time: 09:44 [facility] 11/19 09:16 Order name: US Extremity Venous W Compression [place]; Complete Time: 10:29 [facility] 11/19 09:18 Order name: Chest Abd Pelvis Wo Con; Complete Time: 09:44 EDMS 11/19 09:19 Order name: Head C Spine Mpr Wo Con; Complete Time: 09:44 EDMS 11/19 08:47 Order name: Cardiac monitoring; Complete Time: 09:16 [facility] 11/19 08:47 Order name: EKG - Nurse/Tech; Complete Time: 09:43 [facility] 11/19 08:47 Order name: IV [place]ine Lock; Complete Time: 08:51 [facility] 11/19 08:47 Order name: Labs collected and sent; Complete Time: 09:16 [facility] 11/19 08:47 Order name: O2 Per Protocol; Complete Time: 08:51 [facility] 11/19 08:47 Order name: O2 Sat Monitoring; Complete Time: 08:51 [facility] EC:43 Rate is 58 beats/min. Rhythm is regular. QRS [place] is Normal. [place] interval is normal. QRS daria interval is normal. QT interval is normal. No Q waves. T waves are Normal. Clinical impression: Sinus bradycardia and No evidence of ischemia. Interpreted by me. Reviewed by me. Administered Medications: 10:13 Drug: NS 0.9% IV 1000 ml IV at 1 bolus Per protocol; to be given as a bolus over 60 ld1 minutes Route: IV; Rate: 1 bolus; Site: left hand; 10:40 Drug: foLIC Acid IVPB 1 mg IVPB once Route: IVPB; Site: left hand; ld1 10:40 Drug: Thiamine IV 100 mg IV at per protocol once Route: IV; Rate: per protocol; Site: ld1 left hand; Disposition Summary: 11/19/24 10:30 Discharge Ordered Notes: Location: Home daria Problem: new daria Symptoms: have improved daria Condition: Stable daria Diagnosis - Fall on same level, unspecified daria - Dizziness and giddiness daria - Weakness daria - Edema, unspecified daria Followup: daria - With: Private Physician - When: 2 - 3 days - Reason: Recheck today's complaints, Continuance of care, Re-evaluation by your physician Discharge Instructions: - Discharge Summary Sheet daria - Dizziness daria - Edema daria - Weakness daria - Weakness, [id number] daria - Aspirin and Your Heart daria - Dizziness, [id number] daria - Deconditioning daria Forms: - Medication Reconciliation Form daria - Antibiotic Education daria - Prescription Opioid Use daria - Patient Portal Instructions daria - Leadership Thank You Letter daria Prescriptions: - Folic Acid 1 mg Oral Tablet - take 1 tablet ORAL route once daily; 30 tablet; Refills: 0, Product Selection daria Permitted Signatures: Dispatcher [employer] EDCharan Brewster MD MD cha Baxter, Heather, RN RN Radha Morrissey RN RN ld1 Corrections: (The following items were deleted from the chart) 08:48 08:48 BASIC METABOLIC PANEL+C.LAB.BRZ ordered. EDMS EDMS 08:48 08:48 CBC+H.LAB.BRZ ordered. EDMS EDMS 08:48 08:48 HEPATIC FUNCTION+C.LAB.BRZ ordered. EDMS EDMS 08:48 08:48 MAGNESIUM+C.LAB.BRZ ordered. EDMS EDMS 08:48 08:48 PROBNP+C.LAB.BRZ ordered. EDMS EDMS 08:48 08:48 PROTIME (+INR)+COAG.LAB.BRZ ordered. EDMS EDMS 08:48 08:48 Troponin High Sensitivity+C.LAB.BRZ ordered. EDMS EDMS 08:48 08:48 Urinalysis+U.LAB.BRZ ordered. EDMS EDMS 08:48 08:48 Chest Single View+RAD.RAD.BRZ ordered. EDMS EDMS 08:48 08:48 Head C Spine Cap Wo Con+CT.RAD.BRZ ordered. EDMS EDMS 09:00 08:55 PMHx: Psych diagnosis; hb hb 09:00 08:55 PMHx: Schizoaffective Disorder (Hepatitis C); hb hb
--- NOTE | 2024-11-19 10:30 | ER ---
Nurse's Notes [facility] Name: Emre Stack Age: 74 yrs Sex: Male : 1950 Arrival Date: 11/19/2024 Time: 08:34 Bed 19 Private MD: Diagnosis: Fall on same level, unspecified;Dizziness and giddiness;Weakness;Edema, unspecified Presentation: 11/19 08:52 Chief complaint: EMS states: Mechanical fall from standing today, denies injury. [facility] staff report multiple falls this week and c/o intermittent dizziness, SBP 120s. HR 70s, SpO2 94% on RA, 20g L HAnd. C collar in place. Coronavirus screen: At this time, the client does not indicate any symptoms associated with coronavirus-19. Ebola Screen: No symptoms or risks identified at this time. Initial Sepsis Screen: Does the patient meet any 2 criteria? No. Patient's initial sepsis screen is negative. Does the patient have a suspected source of infection? No. Patient's initial sepsis screen is negative. Risk Assessment: Do you want to hurt yourself or someone else? Patient reports no desire to harm self or others. Onset of symptoms was November 19, 2024. 08:52 Method Of Arrival: EMS: [facility] 08:52 Acuity: SUNITA 3 hb Historical: - Allergies: 08:55 No Known Allergies; hb - Home Meds: 08:56 buspirone 15 mg Oral tablet 3 times per day [Active]; escitalopram oxalate 20 mg oral hb tablet daily [Active]; lithium carbonate 300 mg Oral tablet 2 times per day [Active]; Risperdal 4 mg Oral tablet 2 times per day [Active]; trazodone 50 mg Oral tablet every day at bedtime [Active]; trihexyphenidyl 2 mg Oral tablet 3 times per day [Active]; Vitamin B-1 100 mg oral tablet daily [Active]; - PMHx: 08:55 Hepatitis C; hb 08:56 Schizoaffective Disorder; Alcohol Abuse; hb - Immunization history:: Adult Immunizations up to date. - Infectious Disease History:: Denies. - Social history:: Smoking status: . - Family history:: not pertinent. Screenin:22 [facility] ED Fall Risk Assessment (Adult) History of falling in the last 3 months, ld1 including since admission No falls in past 3 months (0 pts) Confusion or Disorientation No (0 pts) Intoxicated or Sedated No (0 pts) Impaired Gait No (0 pts) Mobility Assist Device Used No (0 pt) Altered Elimination No (0 pt) Score/Fall Risk Level 0 - 2 = Low Risk Oriented to surroundings, Hourly rounding (assess needs \T\ fall precautionary measures) done. Abuse screen: Denies threats or abuse. Denies injuries from another. Nutritional screening: No deficits noted. Tuberculosis screening: No symptoms or risk factors identified. Assessment: 10:20 General: Appears in no apparent distress. comfortable, Behavior is calm, cooperative, ld1 appropriate for age. Pain: Denies pain. Neuro: Level of Consciousness is awake, alert, obeys commands, Oriented to person, place, time, situation. Cardiovascular: Capillary refill < 3 seconds Patient's skin is warm and dry. Respiratory: Airway is patent Respiratory effort is even, unlabored. GI: Abdomen is flat, non-distended. : No signs and/or symptoms were reported regarding the genitourinary system. EENT: No signs and/or symptoms were reported regarding the EENT system. Derm: No signs and/or symptoms reported regarding the dermatologic system. Musculoskeletal: No signs and/or symptoms reported regarding the musculoskeletal system. 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 [facility] requested us to call family. Called brother, - brother en route to medicinal plant picker patient. Vital Signs: 08:52 BP 128 / 75; Pulse 76; Resp 16; Temp 98.2(O); Pulse Ox 95% on R/A; Pain 1/10; hb 10:20 BP 139 / 75; Pulse 58; Resp 18; Pulse Ox 97% on R/A; ld1 08:52 Pain Scale: Adult hb ED Course: 08:45 Patient arrived in ED. daria 08:45 Charan Coombs MD is Attending Physician. daria 08:55 Triage completed. hb 09:00 Arm band placed on. hb 09:09 XRAY Chest (1 view) In Process Unspecified. EDMS 09:15 Radha Morrissey RN is Primary Nurse. ld1 09:29 Chest Abd Pelvis Wo Con In Process Unspecified. EDMS 09:29 Head C Spine Mpr Wo Con In Process Unspecified. EDMS 09:43 EKG done, by ED staff, reviewed by Charan Coombs MD. am7 10:12 US Extremity Venous W Compression Moreno In Process Unspecified. EDMS 10:22 Patient has correct armband on for positive identification. Placed in gown. Bed in low ld1 position. Call light in reach. Side rails up X2. underbaster on. Pulse ox on. NIBP on. Door closed. Noise minimized. Warm blanket given. 10:22 No provider procedures requiring assistance completed. Maintain EMS IV. Dressing ld1 intact. Good blood return noted. Site clean \T\ dry. Gauge \T\ site: 20G LH. 11:49 IV discontinued, intact, bleeding controlled, No redness/swelling at site. ld1 Administered Medications: 10:13 Drug: NS 0.9% IV 1000 ml IV at 1 bolus Per protocol; to be given as a bolus over 60 ld1 minutes Route: IV; Rate: 1 bolus; Site: left hand; 10:40 Drug: foLIC Acid IVPB 1 mg IVPB once Route: IVPB; Site: left hand; ld1 10:40 Drug: Thiamine IV 100 mg IV at per protocol once Route: IV; Rate: per protocol; Site: ld1 left hand; Medication: 10:22 VIS not applicable for this client. ld1 Outcome: 10:30 Discharge ordered by . daria 11:49 Discharged to home ambulatory, ld1 11:49 Condition: stable 11:49 Discharge instructions given to patient, family, Instructed on discharge instructions, follow up and referral plans. medication usage, Demonstrated understanding of instructions, follow-up care, medications, Prescriptions given X 1, 11:49 Patient left the ED. ld1 Signatures: Dispatcher [employer] Charan Prakash MD MD cha Baxter, Heather RN RN hb Radha Morrissey RN RN ld1 Ivette Cooper am7 Corrections: (The following items were deleted from the chart) 09:00 08:55 PMHx: Psych diagnosis; hb hb 09:00 08:55 PMHx: Schizoaffective Disorder (Hepatitis C); hb hb
[2024-11-19] MEDS ORDERED: THIAMINE 200 MG/2 ML INJ ONE (10:39)
[2024-11-19] MEDS ORDERED: FOLIC ACID 5 MG/ML VIAL ONE (10:39)
[2024-11-19 11:59] VITALS: TEMP 98.2
[2024-11-19 12:01] VITALS: BP 139/75; O2SAT 97
== END 2024-11-19 11:49 | disposition home or self-care (01) ==
LOC: ER 08:34
DX: R42 Dizziness and giddiness (principal); R53.1 Weakness; R60.9 Edema, unspecified; W18.30XA Fall on same level, unspecified, initial encounter; F25.9 Schizoaffective disorder, unspecified
CPT/HCPCS: 93005; 85025; 80048; 36415; 83735; 85610; 80178; 80076; 84484; 83880; 70450; 71250; 72125; 74176; 71045; 93970; J3411; J7030; 96374; 96375; 99285